=== PATIENT | male | born 1960 | race Caucasian/White ===

== ENCOUNTER → 2017-10-04 | Outpatient (CLI) | payer BC ==
[2017-10-04 10:05] LABS: Basophils # (auto) 0.1 uL; Basophils % (auto) 1.5 % (0.0-2.0); Eosinophils # (auto) 0.3 uL; Eosinophils % (auto) 4.7 % (0.0-7.0); Hematocrit 44.9 % (41.0-53.0); Hemoglobin 15.6 g/dL (13.5-17.5); Lymphocytes # (auto) 1.8 uL; Lymphocytes % (auto) 29.1 % (10.0-50.0); Mean Corpuscular Hemoglobin 31.8 pg (28.0-32.0); Mean Corpuscular Hgb Conc. 34.7 g/dL (32.0-36.0); Mean Corpuscular Volume 91.4 fL (80.0-100.0); Monocytes # (auto) 0.5 uL; Monocytes % (auto) 8.5 % (0.0-12.0); Neutrophils # (auto) 3.4 uL; Neutrophils % (auto) 56.2 % (37.0-80.0); Nucleated Red Blood Cells % 0.5 %; Platelet Count (auto) 280 10^3/uL (140-450); Red Blood Cells 4.91 10^6/uL (4.5-5.90); Red Cell Distribution Width 13.3 % (11.8-14.3)
[2017-10-04 10:40] LABS: Albumin 4.4 g/dL (3.4-5.0); BUN/Creatinine Ratio 16.7; Potassium 4.6 mmol/L (3.5-5.1); Total Protein 7.4 g/dL (6.4-8.2)
[2017-10-04 10:59] LABS: Urine Bacteria NONE SEEN /hpf (None Seen); Urine Blood Negative /uL (Negative); Urine WBC <1 /hpf (0 - 3)
== END | disposition home or self-care (01) ==
LOC: LAB 09:35
PROVIDERS: ATTEND Internal Medicine
DX: Z00.01 Encounter for general adult medical examination with abnormal findings (principal); Z12.11 Encounter for screening for malignant neoplasm of colon; R79.89 Other specified abnormal findings of blood chemistry
CPT/HCPCS: 36415; 80053; 80061; 81001; 83036; 84153; 84443; 85025

== ENCOUNTER 2019-02-09 14:41 | Inpatient (IN) | payer BC ==
[~2019-02-09] VITALS: Ht 188 cm; Wt 106.6 kg
[2019-02-09] MEDS ORDERED: ONDANSETRON HCL 4 MG/2 ML VIAL IV ONE (16:00)
[2019-02-09] MEDS ORDERED: SODIUM CHLORIDE 0.9% 1,000 ML IV ONE (16:00)
[2019-02-09] MEDS ORDERED: KETOROLAC TROMETH 30 MG/ML 1ML VIAL IV ONE (16:00)
[2019-02-09] MEDS ORDERED: MORPHINE SULF INJ 2 MG/ML SYRINGE 1ML IV ONE (16:00)
[2019-02-09] MEDS ORDERED: SODIUM CHLORIDE 0.9% 1,000 ML IVB ONE (16:37)
[2019-02-09 16:47] LABS: Hematocrit 47.3 % (41.0-53.0); Hemoglobin 16.7 g/dL (13.5-17.5); Mean Corpuscular Hemoglobin 32.9 pg (28.0-32.0); Mean Corpuscular Hgb Conc. 35.3 g/dL (32.0-36.0); Mean Corpuscular Volume 93.4 fL (80.0-100.0); Platelet Count (auto) 316 10^3/uL (140-450); Red Blood Cells 5.06 10^6/uL (4.5-5.90); Red Cell Distribution Width 13.3 % (11.8-14.3)
[2019-02-09 17:00] LABS: Albumin 4.7 g/dL (3.4-5.0); Calcium 9.2 mg/dL (8.5-10.1); Potassium 3.3 mmol/L (3.5-5.1)
[2019-02-09 17:03] LABS: BUN/Creatinine Ratio 14.9; Bilirubin, Total 1.2 mg/dL (0.2-1.0); Total Protein 8.1 g/dL (6.4-8.2)
[2019-02-09 17:17] LABS: Basophils % (manual) 0 (0.0-2.0); Blast Cells 0; Eosinophils % (manual) 0 (0-7); Metamyelocytes % 0; Myelocytes % 0; Promyelocytes % 0; Reactive Lymphocytes 0
[2019-02-09 18:39] LABS: Band Neutrophils % (manual) 1; Lymphocytes % (manual) 3 (10.0-50.0); Monocytes % (manual) 2 (0-12)
[2019-02-09] MEDS ORDERED: NITROGLYCERIN 0.4 MG SL TAB SL PRN (19:00)
[2019-02-09] MEDS ORDERED: TEMAZEPAM 15 MG CAP PO PRN (19:00)
[2019-02-09] MEDS ORDERED: PROMETHAZINE HCL 25 MG/ML 1ML IV PRN (19:00)
[2019-02-09] MEDS ORDERED: DEXTROSE (50%) 50ML SYRG IV PRN (19:00)
[2019-02-09] MEDS ORDERED: MORPHINE SULF INJ 2 MG/ML SYRINGE 1ML IV PRN (19:00)
[2019-02-09] MEDS ORDERED: traMADol HCL 50 MG TAB PO PRN (19:00)
[2019-02-09] MEDS ORDERED: MORPHINE SULFATE 4 MG/ML SYR/VIAL IV PRN (19:00)
[2019-02-09] MEDS ORDERED: TAMSULOSIN HYDROCHLORIDE 0.4 MG CAP PO ONE (19:00)
[2019-02-09] MEDS ORDERED: cefTRIAXone 1GM/50ML D5W 50 ML IV ONE (19:00)
[2019-02-09] MEDS: SOD CHL 0.9%/ KCL 40MEQ 1,000 ML IV SCH (19:00)
[2019-02-09] MEDS ORDERED: ACETAMINOPHEN 500 MG TAB PO PRN (19:00)
[2019-02-09 19:18] LABS: Urine Bacteria NONE SEEN /hpf (None Seen); Urine Blood TRACE /uL (Negative); Urine Specific Gravity 1.024 (1.001-1.035); Urine WBC 1 /hpf (0 - 3)
[2019-02-09 19:35] LABS: INR 1.05 (0.9-1.15); Partial Thromboplastin Time 25.4 sec (23.64-32.05)
[2019-02-09 20:13] VITALS: BP 107/73
--- NOTE | 2019-02-09 20:13 | NUR ---
Telemetry admit from [facility] admitted to Telemetry unit after no SBAR received. Patient oriented to NATE RODRIGUEZ RN primary RN, unit, room, bed, and unit policies regarding patient care and visiting hours. Patient now on continuous telemetry monitoring, tele box # HC-1 and telemetry reading on arrival to unit is normal sinus rhythm at 71 beats per minute. Patient weighed by bedscale and encouraged to call if they need something. All questions and concerns addressed, patient verbalized understanding. Bed in lowest locked position, side rails up x2, call light within reach. No s/s of distress. Will round every hour and as needed and continue to monitor patient. Addendum: 02/10/19 at 0219 by NATE RODRIGUEZ RN RN ADDITION: Patient reports difficulty urinating, but that urine is clear and yellow. Hat provided and patient instructed inform staff so urine could be strained, patient verbalized understanding, will continue to monitor.
[2019-02-09] MEDS: ACCU-CHEK COMFORT CURVE STRIP VI SCH (21:53)
[2019-02-09 22:00] VITALS: BP 107/73
[2019-02-10] MEDS: SOD CHL 0.9%/ KCL 40MEQ 1,000 ML IV SCH ×2 (03:20→11:54)
--- NOTE | 2019-02-10 04:10 | NUR ---
Urine Straining 500 ml of clear, light chace urine strained from patient, no stones noted. Will continue to monitor.
[2019-02-10 05:40] VITALS: BP 127/83
[2019-02-10 05:41] LABS: Basophils # (auto) 0.1 uL; Basophils % (auto) 0.5 % (0.0-2.0); Eosinophils # (auto) 0 uL; Eosinophils % (auto) 0.3 % (0.0-7.0); Hematocrit 40.4 % (41.0-53.0); Lymphocytes # (auto) 2.4 uL; Lymphocytes % (auto) 17.1 % (10.0-50.0); Mean Corpuscular Hemoglobin 33.1 pg (28.0-32.0); Mean Corpuscular Hgb Conc. 34.6 g/dL (32.0-36.0); Mean Corpuscular Volume 95.5 fL (80.0-100.0); Monocytes # (auto) 1.5 uL; Monocytes % (auto) 10.5 % (0.0-12.0); Neutrophils % (auto) 71.6 % (37.0-80.0); Platelet Count (auto) 277 10^3/uL (140-450); Red Blood Cells 4.23 10^6/uL (4.5-5.90); Red Cell Distribution Width 13.6 % (11.8-14.3)
[2019-02-10 05:59] LABS: Potassium 4.5 mmol/L (3.5-5.1)
[2019-02-10 06:09] LABS: Albumin 3.4 g/dL (3.4-5.0); BUN/Creatinine Ratio 18.9; Bilirubin, Total 0.5 mg/dL (0.2-1.0); Calcium 8.7 mg/dL (8.5-10.1); Total Protein 6.2 g/dL (6.4-8.2)
[2019-02-10] MEDS: ACCU-CHEK COMFORT CURVE STRIP VI SCH ×3 (06:38→17:00)
--- NOTE | 2019-02-10 07:00 | NUR ---
Closing Note Patient lying in bed, awake and alert. No s/s of distress. Care endorsed to dayshift RN.
[2019-02-10 07:48] VITALS: BP 147/89
--- NOTE | 2019-02-10 07:48 | NUR ---
Opening Shift Note Assumed care of patient, awake and alert. No S/S of distress/SOB or pain. Instructed on POC and to call for assist PRN, will continue to monitor for changes Q1hr and PRN.
[2019-02-10] MEDS ORDERED: cefTRIAXone 1GM/50ML D5W 50 ML IV SCH (09:00)
[2019-02-10] MEDS ORDERED: PANTOPRAZOLE 40 MG TAB PO SCH (10:00)
[2019-02-10] MEDS ORDERED: ENOXAPARIN SOD 40 MG/0.4 ML SYRINGE SC SCH (10:00)
--- NOTE | 2019-02-10 11:50 | NUR ---
Patient ambulating on unit. in attendance
[2019-02-10 11:54] VITALS: BP 128/84
--- NOTE | 2019-02-10 15:30 | NUR ---
Urology consult Patient concerned that urologist have not been in to see him yet. He wants to go home but want to know if he still has a blockage. Consult was called in 02/09/19 at 1950.
[2019-02-10 16:20] VITALS: BP 131/81
--- NOTE | 2019-02-10 16:30 | NUR ---
Dr. Winkler at bedside.
[2019-02-10 17:31] VITALS: BP 131/81
--- NOTE | 2019-02-10 18:07 | NUR ---
Discharge instructions given as ordered. Encourage to follow up with PMD as instructed. All questions and concerns addressed. Patient verbalized understanding. Medication reconciliation form completed and copy given to patient. IV removed with catheter intact and pressure dressing applied. Telemetry unit returned to [facility]. Patient ambulated to vehicle with all personal belongings. No distress noted at time of departure.
== END 2019-02-10 18:00 | disposition home or self-care (01) | DRG 694 ==
LOC: ER 14:41 → TELE 18:56 → TELE-WESTW 20:13
PROVIDERS: ADMIT Internal Medicine; ATTEND Internal Medicine
DX: N13.2 Hydronephrosis with renal and ureteral calculous obstruction (principal); E87.6 Hypokalemia; E78.5 Hyperlipidemia, unspecified; E11.9 Type 2 diabetes mellitus without complications; N17.9 Acute kidney failure, unspecified; Z82.49 Family history of ischemic heart disease and other diseases of the circulatory system; Z87.442 Personal history of urinary calculi; E66.3 Overweight; Z68.30 Body mass index [BMI] 30.0-30.9, adult; M54.9 Dorsalgia, unspecified; G89.29 Other chronic pain
CPT/HCPCS: 36415; 71045; 74176; 80053; 81001; 82962; 83036; 83735; 85007; 85025; 85027; 85610; 85730; 87086; 93005; 94761; 96365; 96368; 96375; 96376; G0378; J0696; J1885; J2405

== ENCOUNTER 2019-02-24 11:53 | Inpatient (IN) | payer BC ==
[~2019-02-24] VITALS: Ht 190.5 cm; Wt 105.4 kg
[2019-02-24 13:13] LABS: Urine Bacteria NONE SEEN /hpf (None Seen); Urine Blood Negative /uL (Negative); Urine Specific Gravity 1.021 (1.001-1.035); Urine WBC 2 /hpf (0 - 3)
[2019-02-24 13:46] LABS: Basophils # (auto) 0 uL; Basophils % (auto) 0.3 % (0.0-2.0); Eosinophils # (auto) 0 uL; Hematocrit 45.7 % (41.0-53.0); Hemoglobin 15.7 g/dL (13.5-17.5); Lymphocytes # (auto) 1.1 uL; Lymphocytes % (auto) 7.7 % (10.0-50.0); Mean Corpuscular Hemoglobin 31.7 pg (28.0-32.0); Mean Corpuscular Hgb Conc. 34.4 g/dL (32.0-36.0); Monocytes % (auto) 7.1 % (0.0-12.0); Neutrophils # (auto) 12.3 uL; Neutrophils % (auto) 84.9 % (37.0-80.0); Platelet Count (auto) 311 10^3/uL (140-450); Red Blood Cells 4.97 10^6/uL (4.5-5.90); Red Cell Distribution Width 13.2 % (11.8-14.3); White Blood Cell 14.5 10^3/uL (4.4-10.8)
[2019-02-24 14:00] LABS: Albumin 4.4 g/dL (3.4-5.0); BUN/Creatinine Ratio 17.3; Calcium 8.7 mg/dL (8.5-10.1); Potassium 4.6 mmol/L (3.5-5.1)
[2019-02-24 14:03] LABS: Bilirubin, Total 0.8 mg/dL (0.2-1.0); Total Protein 7.4 g/dL (6.4-8.2)
[2019-02-24] MEDS ORDERED: SODIUM CHLORIDE 0.9% 1,000 ML IVB ONE (15:03)
[2019-02-24] MEDS ORDERED: KETOROLAC TROMETH 15 mg/ml 1ML VL IV ONE (15:15)
--- NOTE | 2019-02-24 15:59 | NUR ---
MS admit from ER ISREAL SORIAY admitted to [facility]/MS after SBAR received. Patient oriented to Anastasia Vides, primary RN, unit, room, bed, and unit policies regarding patient care and visiting hours. Patient weighed by bedscale and encouraged to call if they need something. All questions and concerns addressed, patient verbalized understanding. Note: PT IS AWAKE AND ALERT, NO COMPLAINTS OF PAIN AT THIS TIME, WILL CONTINUE TO MONITOR. Addendum: 02/24/19 at 1936 by Anastasia Vides RN RECEIVED PT AT [id number]
[2019-02-24 16:00] VITALS: BP 126/79
[2019-02-24] MEDS ORDERED: traMADol HCL 50 MG TAB PO PRN (16:00)
[2019-02-24] MEDS ORDERED: MORPHINE SULFATE 4 MG/ML SYR/VIAL IV PRN (16:00)
[2019-02-24] MEDS ORDERED: NITROGLYCERIN 0.4 MG SL TAB SL PRN (16:00)
[2019-02-24] MEDS ORDERED: MORPHINE SULF INJ 2 MG/ML SYRINGE 1ML IV PRN (16:00)
[2019-02-24] MEDS ORDERED: PROMETHAZINE HCL 25 MG/ML 1ML IV PRN (16:00)
[2019-02-24] MEDS ORDERED: TEMAZEPAM 15 MG CAP PO PRN (16:00)
[2019-02-24] MEDS ORDERED: ACETAMINOPHEN 500 MG TAB PO PRN (16:00)
[2019-02-24] MEDS ORDERED: cefTRIAXone 1GM/50ML D5W 50 ML IV ONE (16:00)
[2019-02-24] MEDS: SODIUM CHLORIDE 0.9% 1,000 ML IV SCH (16:08)
[2019-02-24] MEDS ORDERED: MANNITOL FTV 25% 12.5 GM/50 ML 50 ML IV ONE (16:30)
--- NOTE | 2019-02-24 16:35 | NUR ---
RECEIVED REPORT FROM INDIA PADGETT
[2019-02-24] MEDS ORDERED: TAMSULOSIN HYDROCHLORIDE 0.4 MG CAP PO ONE (17:45)
--- NOTE | 2019-02-24 19:10 | NUR ---
RECEIVED PATIENT LYING IN BED, AWAKE, ALERT, ORIENTED X4. NO S/S OF RESPIRATORY DISTRESS, DENIES SOB AND CHEST PAIN. ORIENTED ON PLAN OF CARE. BED IS LOCKED AND IN LOWEST LEVEL, SIDE RAILS UP X2, CALL LIGHT WITHIN REACH. WILL CONTINUE TO MONITOR.
[2019-02-24 22:00] VITALS: BP 124/75
[2019-02-25] MEDS: SODIUM CHLORIDE 0.9% 1,000 ML IV SCH ×3 (02:00→22:19)
[2019-02-25 05:00] VITALS: BP 107/69
--- NOTE | 2019-02-25 07:12 | NUR ---
CARE ENDORSED TO AM SHIFT RN
--- NOTE | 2019-02-25 07:30 | NUR ---
Opening Shift Note Assumed care of patient, awake and alert, lying on bed. No S/S of distress/SOB or flank pain. Instructed on POC and to call for assist PRN, will continue to monitor for changes Q1hr and PRN.
[2019-02-25 08:42] VITALS: BP 126/83
[2019-02-25] MEDS ORDERED: cefTRIAXone 1GM/50ML D5W 50 ML IV SCH (09:00)
[2019-02-25] MEDS: PANTOPRAZOLE 40 MG TAB PO SCH (09:12)
[2019-02-25 10:25] LABS: Basophils # (auto) 0 uL; Basophils % (auto) 0.3 % (0.0-2.0); Eosinophils # (auto) 0.1 uL; Eosinophils % (auto) 0.6 % (0.0-7.0); Hematocrit 39.1 % (41.0-53.0); Hemoglobin 13.7 g/dL (13.5-17.5); Lymphocytes # (auto) 1.4 uL; Lymphocytes % (auto) 15.5 % (10.0-50.0); Mean Corpuscular Hemoglobin 32.4 pg (28.0-32.0); Mean Corpuscular Volume 92.6 fL (80.0-100.0); Monocytes # (auto) 0.6 uL; Monocytes % (auto) 6.5 % (0.0-12.0); Neutrophils # (auto) 7.1 uL; Neutrophils % (auto) 77.1 % (37.0-80.0); Platelet Count (auto) 247 10^3/uL (140-450); Red Blood Cells 4.22 10^6/uL (4.5-5.90); Red Cell Distribution Width 13.4 % (11.8-14.3); White Blood Cell 9.2 10^3/uL (4.4-10.8)
[2019-02-25 10:37] LABS: Albumin 3.4 g/dL (3.4-5.0); Calcium 8.3 mg/dL (8.5-10.1)
[2019-02-25 10:42] LABS: BUN/Creatinine Ratio 16.1; Bilirubin, Total 0.6 mg/dL (0.2-1.0); Total Protein 6.1 g/dL (6.4-8.2)
[2019-02-25 12:30] VITALS: BP 135/95
[2019-02-25 17:27] VITALS: BP 141/90
--- NOTE | 2019-02-25 18:30 | NUR ---
Pt is resting on bed comfortably, no complaints of flank pain throughout the day.
--- NOTE | 2019-02-25 20:00 | NUR ---
UNABLE TO OBTAIN CONSENT, PATIENT AND HIS WANT TO SPEAK TO DR. PINZON FIRST. WILL SIGN THE CONSENT TOMORROW. INSTRUCTED TO BE NPO AFTER MIDNIGHT. PATIENT VERBALIZED UNDERSTANDING
[2019-02-25 22:00] VITALS: BP 137/78
--- NOTE | 2019-02-25 22:30 | NUR ---
RECEIVED A CALL FROM THE LAB, PATIENT POSITIVE FOR MRSA FROM THE [facility]
--- NOTE | 2019-02-25 23:00 | NUR ---
TRANSFERRED TO ROOM 207, ON CONTACT PRECAUTION
--- NOTE | 2019-02-26 00:30 | NUR ---
SPOKED WITH HOSPITALIST Gucci NUNEZ REGARDING PATIENT POSITIVE FOR MRSA AND PATIENT HAS PASSED RENAL STONE IN HIS URINE RECEIVED ORDER FOR BACTROBAN OINTMENT BID AND SEND STONE SAMPLE TO THE LAB
--- NOTE | 2019-02-26 00:35 | NUR ---
STONE SAMPLE SENT TO THE LAB, NO NEED TO PUT AN ORDER PER THE LAB STAFF
[2019-02-26 05:01] VITALS: BP 131/89
[2019-02-26 05:22] LABS: INR 0.96 (0.9-1.15); Partial Thromboplastin Time 25.1 sec (23.64-32.05)
[2019-02-26 05:24] LABS: BUN/Creatinine Ratio 15.2; Calcium 8.6 mg/dL (8.5-10.1); Potassium 4.6 mmol/L (3.5-5.1)
--- NOTE | 2019-02-26 07:08 | NUR ---
CARE ENDORSED TO AM SHIFT RN
[2019-02-26] MEDS: SODIUM CHLORIDE 0.9% 1,000 ML IV SCH (07:55)
--- NOTE | 2019-02-26 08:30 | NUR ---
PT SEEN BY NANI UNDERWOOD PT MADE AWARE ESWL PROCEDURE WILL BE RESCHEDULED TOMORROW DUE TO MACHINE NOT AVAILABLE TODAY, PT STATED HE WANT TO GO HOME SINCE HIS NOT HAVING PAIN AND CANNOT WAIT UNTIL TOMORROW. ELDER IS AWARE PT PASSED OUT STONE LAST NIGHT. PER ELDER PT CAN FOLLOW UP WITH UROLOGY AN OUT PATIENT.
--- NOTE | 2019-02-26 08:45 | NUR ---
PT SEEN BY DR. HAYNES SHE ORDERED STAT KUB.
[2019-02-26 08:48] VITALS: BP 144/85
--- NOTE | 2019-02-26 09:00 | NUR ---
SPOKE WITH DR. HAYNES PER DR. HAYNES KUB RESULTED AND NO STONE WAS FOUND, PT CAN GO HOME.
[2019-02-26] MEDS ORDERED: MUPI2OIN2 EACHNOSTRI (09:23)
[2019-02-26] MEDS: PANTOPRAZOLE 40 MG TAB PO SCH (10:00)
[2019-02-26] MEDS ORDERED: MUPIROCIN 2% OINT 15gm or 22gm EACHNOSTRI SCH ×2 (10:00)
[2019-02-26 10:24] VITALS: BP 144/85
--- NOTE | 2019-02-26 11:20 | NUR ---
Discharge instructions given as ordered. Encourage to follow up with DR. PRIEST ON MARCH 05 AT 3:30 PM as instructed. All questions and concerns addressed. Patient verbalized understanding. Medication reconciliation form completed and copy given to patient. IV removed with catheter intact, pressure dressing applied. Patient PREFERRED TO WALK TO THE VEHICLE with all personal belongings, accompanied by . No distress noted at time of departure.
== END 2019-02-26 11:20 | disposition home or self-care (01) | DRG 694 ==
LOC: ER 11:53 → OVERFLOW 16:00 → CENTRAL 16:45
PROVIDERS: ADMIT Internal Medicine; ATTEND Internal Medicine
DX: N13.2 Hydronephrosis with renal and ureteral calculous obstruction (principal); E11.9 Type 2 diabetes mellitus without complications; N17.9 Acute kidney failure, unspecified; E78.5 Hyperlipidemia, unspecified; F17.200 Nicotine dependence, unspecified, uncomplicated; Z82.49 Family history of ischemic heart disease and other diseases of the circulatory system; Z87.442 Personal history of urinary calculi; Z22.322 Carrier or suspected carrier of Methicillin resistant Staphylococcus aureus
CPT/HCPCS: 36415; 71045; 74018; 74176; 80048; 80053; 81001; 84484; 85025; 85610; 85730; 86850; 86900; 86901; 87081; 87086; 93005; 94761; 96361; 96374; 96375; G0378; J0696

== ENCOUNTER 2019-03-04 08:19 | Emergency (ER) | payer BC ==
[~2019-03-04] VITALS: Ht 190.5 cm; Wt 104.3 kg
[~2019-03-04 08:19] MED LIST: MUPI2OIN2 EACHNOSTRI
[2019-03-04 08:42] VITALS: BP 134/74
== END 2019-03-04 09:05 | disposition home or self-care (01) ==
LOC: ER 08:26
DX: B95.62 Methicillin resistant Staphylococcus aureus infection as the cause of diseases classified elsewhere (principal); Z90.89 Acquired absence of other organs
CPT/HCPCS: 87040; 87081

== ENCOUNTER → 2019-03-13 | Outpatient (CLI) | payer BC ==
[2019-03-13 10:41] LABS: Cholesterol 152 mg/dL (< 200); Triglycerides 50 mg/dL (< 150)
[2019-03-13 10:43] LABS: HDL Cholesterol 59 mg/dL (40-59); LDL Cholesterol 96 mg/dL (< 100)
== END | disposition home or self-care (01) ==
LOC: LAB 10:00
PROVIDERS: ATTEND Internal Medicine
DX: Z12.11 Encounter for screening for malignant neoplasm of colon (principal); E11.9 Type 2 diabetes mellitus without complications
CPT/HCPCS: 36415; 80061; 82043; 84153

== ENCOUNTER 2019-08-08 09:25 | Inpatient (IN) | payer BC ==
[~2019-08-08] VITALS: Ht 190.5 cm; Wt 112.4 kg
[2019-08-08] MEDS ORDERED: SODIUM CHLORIDE 0.9% 1,000 ML IV ONE ×3 (10:15→10:28)
[2019-08-08] MEDS ORDERED: PROMETHAZINE HCL 25 MG/ML 1ML IV ONE (10:15)
[2019-08-08] MEDS ORDERED: KETOROLAC TROMETH 30 MG/ML 1ML VIAL IV ONE (10:15)
[2019-08-08 10:37] LABS: Basophils # (auto) 0 uL; Basophils % (auto) 0.2 % (0.0-2.0); Eosinophils # (auto) 0 uL; Hematocrit 43.9 % (41.0-53.0); Hemoglobin 15.4 g/dL (13.5-17.5); Lymphocytes # (auto) 0.7 uL; Lymphocytes % (auto) 5.3 % (10.0-50.0); Mean Corpuscular Volume 91.7 fL (80.0-100.0); Monocytes # (auto) 0.3 uL; Monocytes % (auto) 2.5 % (0.0-12.0); Platelet Count (auto) 284 10^3/uL (140-450); Red Blood Cells 4.79 10^6/uL (4.5-5.90); Red Cell Distribution Width 13.1 % (11.8-14.3)
[2019-08-08 10:52] LABS: Albumin 4.5 g/dL (3.4-5.0); Anion Gap 10 (5-15); Blood Urea Nitrogen 27 mg/dL (7-18); Calcium 8.8 mg/dL (8.5-10.1); Carbon Dioxide 21 mmol/L (21-32); Chloride 107 mmol/L (98-107); Glucose 201 mg/dL (74-106); Potassium 3.4 mmol/L (3.5-5.1); Sodium 138 mmol/L (136-145)
[2019-08-08 10:56] LABS: Urine Bacteria NONE SEEN /hpf (None Seen); Urine Blood Negative /uL (Negative); Urine Mucus FEW (None Seen); Urine Specific Gravity 1.025 (1.001-1.035); Urine WBC 3 /hpf (0 - 3)
[2019-08-08 10:58] LABS: Alanine Aminotransferase 27 U/L (16-61); Alkaline Phosphatase 95 U/L (45-117); Aspartate Aminotransferase 23 U/L (15-37); BUN/Creatinine Ratio 18.4; Bilirubin, Total 0.8 mg/dL (0.2-1.0); GFR African American 64 mL/min; GFR Non-African American 52 mL/min; Total Protein 7.5 g/dL (6.4-8.2)
[2019-08-08] MEDS ORDERED: TAMSULOSIN HYDROCHLORIDE 0.4 MG CAP PO ONE (11:45)
[2019-08-08] MEDS ORDERED: cefTRIAXone 1GM/50ML D5W 50 ML IV ONE ×2 (11:45→14:15)
[2019-08-08] MEDS ORDERED: ONDANSETRON HCL 4 MG/2 ML VIAL IV ONE (12:30)
[2019-08-08] MEDS ORDERED: MORPHINE SULFATE 4 MG/ML SYR/VIAL IV ONE (13:45)
[2019-08-08] MEDS: SODIUM CHLORIDE 0.9% 1,000 ML IV SCH ×2 (14:02→22:00)
[2019-08-08] MEDS ORDERED: ACETAMINOPHEN 500 MG TAB PO PRN (14:15)
--- NOTE | 2019-08-08 15:00 | NUR ---
PATIENT ARRIVED TO THE UNIT IN EXCRUCIATING PAIN, VIA HOSPITAL BED. PATIENT WAS ORIENTED TO THE UNIT, THE USE OF CALL LIGHT AND POC. VITAL SIGNS WHERE TAKEN, B/P WAS ELEVATED, HOWEVER THE PATIENT WAS MOVING IN BED AND TRASHING AROUND. WILL RETAKE. PATIENT IS ON ROOM AIR, OVERALL HEALTHY LOOKING, OTHER THAN THE PAIN HE DENIES ANY DISTRESS. CALL LIGHT WITH IN REACH, BED IN THE LOWEST POSITION. WILL CONTINUE TO MONITOR
[2019-08-08] MEDS: KETOROLAC TROMETH 30 MG/ML 1ML VIAL IV PRN ×2 (16:12→23:04)
[2019-08-08] MEDS: PROMETHAZINE HCL 25 MG/ML 1ML IV PRN (16:12)
[2019-08-08 17:00] VITALS: BP 168/97
[2019-08-08] MEDS ORDERED: MANNITOL FTV 25% 12.5 GM/50 ML 50 ML IV ONE (17:15)
--- NOTE | 2019-08-08 19:00 | NUR ---
PATIENT ALERT AND ORIENTED, NO S/S OF DISTRESS
--- NOTE | 2019-08-08 19:39 | NUR ---
CARE ENDORSED TO RN
[2019-08-08] MEDS: traMADol HCL 50 MG TAB PO PRN (20:28)
--- NOTE | 2019-08-08 21:00 | NUR ---
Provided patient with urinal to strain urine for stones. Patient verbalized understanding.
[2019-08-08] MEDS: FAMOTIDINE 20 MG TAB PO SCH (21:39)
[2019-08-08] MEDS: TEMAZEPAM 15 MG CAP PO PRN (21:39)
[2019-08-08 22:00] VITALS: BP 161/90
[2019-08-09 05:00] VITALS: BP 147/85
[2019-08-09] MEDS: KETOROLAC TROMETH 30 MG/ML 1ML VIAL IV PRN ×3 (05:23→18:23)
[2019-08-09 06:14] LABS: Basophils # (auto) 0 uL; Basophils % (auto) 0.3 % (0.0-2.0); Eosinophils # (auto) 0 uL; Hematocrit 40.4 % (41.0-53.0); Hemoglobin 14.2 g/dL (13.5-17.5); Lymphocytes % (auto) 5.2 % (10.0-50.0); Mean Corpuscular Hemoglobin 32.3 pg (28.0-32.0); Mean Corpuscular Hgb Conc. 35.2 g/dL (32.0-36.0); Mean Corpuscular Volume 91.9 fL (80.0-100.0); Monocytes # (auto) 1.3 uL; Monocytes % (auto) 6.8 % (0.0-12.0); Neutrophils # (auto) 16.1 uL; Neutrophils % (auto) 87.7 % (37.0-80.0); Nucleated Red Blood Cells % 0.1 %; Platelet Count (auto) 224 10^3/uL (140-450); Red Blood Cells 4.39 10^6/uL (4.5-5.90); Red Cell Distribution Width 13.2 % (11.8-14.3); White Blood Cell 18.4 10^3/uL (4.4-10.8)
--- NOTE | 2019-08-09 07:15 | NUR ---
Opening Shift Note Report received and rounding completed. Patient noted awake, alert & oriented, sitting up in bed reporting no pain currently. POC reviewed and patient verbalized understanding. Will continue to monitor urine for stones and attempt to control pain. Patient has call light within reach and understands to call if needing assistance.
[2019-08-09] MEDS: cefTRIAXone 1GM/50ML D5W 50 ML IV SCH (08:53)
[2019-08-09 09:00] VITALS: BP 129/63
[2019-08-09] MEDS: FAMOTIDINE 20 MG TAB PO SCH ×2 (09:51→21:31)
[2019-08-09] MEDS: traMADol HCL 50 MG TAB PO PRN ×2 (09:51→14:18)
[2019-08-09] MEDS: SODIUM CHLORIDE 0.9% 1,000 ML IV SCH ×2 (09:52→21:31)
--- NOTE | 2019-08-09 11:42 | NUR ---
IV Infiltrated R Hand IV infiltrated, removed with tip intact. 2X attempts to obtain new IV, charge nurse notified to attempt IV access.
--- NOTE | 2019-08-09 12:01 | NUR ---
NEW IV L wrist 22G placed by disk recordist Joslyn.
[2019-08-09 13:00] VITALS: BP 144/85
[2019-08-09 17:00] VITALS: BP 139/82
--- NOTE | 2019-08-09 19:30 | NUR ---
Opening shift note Patient in bed alert and oriented x 4, verbally coherent able to make needs known. Patient's respiration even and unlabored, denies pain and discomfort at this time. Plan of care discussed, patient verbalized understanding. All needs attended, will continue to monitor.
[2019-08-09] MEDS: TEMAZEPAM 15 MG CAP PO PRN (21:32)
[2019-08-09 22:00] VITALS: BP 109/72
[2019-08-10] MEDS: KETOROLAC TROMETH 30 MG/ML 1ML VIAL IV PRN ×4 (02:05→23:13)
[2019-08-10 05:47] LABS: Basophils # (auto) 0 uL; Basophils % (auto) 0.2 % (0.0-2.0); Eosinophils # (auto) 0 uL; Eosinophils % (auto) 0.3 % (0.0-7.0); Hematocrit 39.1 % (41.0-53.0); Hemoglobin 13.6 g/dL (13.5-17.5); Lymphocytes # (auto) 1.3 uL; Lymphocytes % (auto) 10.6 % (10.0-50.0); Mean Corpuscular Hemoglobin 32.5 pg (28.0-32.0); Mean Corpuscular Hgb Conc. 34.9 g/dL (32.0-36.0); Monocytes % (auto) 8.2 % (0.0-12.0); Neutrophils # (auto) 9.7 uL; Neutrophils % (auto) 80.7 % (37.0-80.0); Platelet Count (auto) 217 10^3/uL (140-450); Red Cell Distribution Width 13.1 % (11.8-14.3); White Blood Cell 12.1 10^3/uL (4.4-10.8)
[2019-08-10 05:55] LABS: Potassium 4.6 mmol/L (3.5-5.1)
[2019-08-10] MEDS: SODIUM CHLORIDE 0.9% 1,000 ML IV SCH ×2 (06:02→16:43)
[2019-08-10 06:03] LABS: Albumin 3.6 g/dL (3.4-5.0); BUN/Creatinine Ratio 15.7; Bilirubin, Total 0.9 mg/dL (0.2-1.0); Calcium 8.4 mg/dL (8.5-10.1); Magnesium 2.4 mg/dL (1.6-2.6); Total Protein 5.9 g/dL (6.4-8.2)
[2019-08-10 06:05] VITALS: BP 124/76
[2019-08-10] MEDS: traMADol HCL 50 MG TAB PO PRN ×2 (06:38→14:33)
--- NOTE | 2019-08-10 08:26 | NUR ---
OPENING SHIFT NOTE ASSUMED CARE OF PT. PT IS AWAKE AND ALERT. NO SOB OR SIGNS OF DISTRESS NOTED. INSTRUCTED ON POC AND TO CALL FOR HELP PRN. BED IN LOWEST POSITION WITH SIDE RAILS UP X2. WILL CONTINUE TO MONITOR.
[2019-08-10 09:00] VITALS: BP 119/72
[2019-08-10] MEDS: PROMETHAZINE HCL 25 MG/ML 1ML IV PRN ×2 (10:45→17:13)
[2019-08-10] MEDS: FAMOTIDINE 20 MG TAB PO SCH ×2 (10:54→21:12)
[2019-08-10] MEDS: cefTRIAXone 1GM/50ML D5W 50 ML IV SCH (10:54)
[2019-08-10 13:00] VITALS: BP 110/68
[2019-08-10 16:42] VITALS: BP 107/67
--- NOTE | 2019-08-10 19:30 | NUR ---
Opening shift note Patient in bed alert and oriented, verbally coherent able to make needs known. Patient denies pain and discomfort at this time. Plan of care discussed, patient verbalized understanding. family at bedside. All needs attended, will continue to monitor.
[2019-08-10] MEDS: TEMAZEPAM 15 MG CAP PO PRN (21:12)
[2019-08-10 22:00] VITALS: BP 100/61
[2019-08-11] MEDS: SODIUM CHLORIDE 0.9% 1,000 ML IV SCH ×3 (00:13→23:17)
[2019-08-11 05:00] VITALS: BP 114/73
[2019-08-11 07:04] LABS: Basophils # (auto) 0 uL; Basophils % (auto) 0.5 % (0.0-2.0); Eosinophils # (auto) 0.1 uL; Eosinophils % (auto) 0.8 % (0.0-7.0); Hematocrit 39.2 % (41.0-53.0); Hemoglobin 13.7 g/dL (13.5-17.5); Lymphocytes # (auto) 1.1 uL; Lymphocytes % (auto) 10.8 % (10.0-50.0); Mean Corpuscular Hemoglobin 32.9 pg (28.0-32.0); Mean Corpuscular Hgb Conc. 34.9 g/dL (32.0-36.0); Mean Corpuscular Volume 94.1 fL (80.0-100.0); Monocytes % (auto) 9.7 % (0.0-12.0); Neutrophils # (auto) 7.9 uL; Neutrophils % (auto) 78.2 % (37.0-80.0); Nucleated Red Blood Cells % 0.1 %; Platelet Count (auto) 178 10^3/uL (140-450); Red Blood Cells 4.17 10^6/uL (4.5-5.90); Red Cell Distribution Width 13.3 % (11.8-14.3); White Blood Cell 10.1 10^3/uL (4.4-10.8)
[2019-08-11 07:33] LABS: Calcium 7.7 mg/dL (8.5-10.1); Potassium 4.1 mmol/L (3.5-5.1)
[2019-08-11 07:35] LABS: BUN/Creatinine Ratio 13.3
--- NOTE | 2019-08-11 08:34 | NUR ---
OPENING SHIFT NOTE RESUMED CARE OF PT. PT IS AWAKE AND ALERT AND AMBULATING IN [place]. NO SOB OR SIGNS OF DISTRESS NOTED. NO PAIN REPORTED AT THIS TIME. INSTRUCTED ON POC AND TO CALL FOR HELP PRN. WILL CONTINUE TO MONITOR.
[2019-08-11 09:00] VITALS: BP 136/88
--- NOTE | 2019-08-11 09:00 | NUR ---
RIGHT HAND IV REMOVED DUE TO PT COMPLAINT OF INCREASED SWELLING TO HAND. INTACT IV REMOVED. PT TOLERATED WELL.
[2019-08-11] MEDS: traMADol HCL 50 MG TAB PO PRN ×2 (09:11→18:00)
[2019-08-11] MEDS: cefTRIAXone 1GM/50ML D5W 50 ML IV SCH (09:11)
[2019-08-11] MEDS: FAMOTIDINE 20 MG TAB PO SCH ×2 (09:12→22:07)
--- NOTE | 2019-08-11 11:00 | NUR ---
NEW IV STARTED. 22G IV PLACED IN LEFT FOREARM. PT TOLERATED WELL. WILL CONTINUE IV FLUIDS ORDERED.
[2019-08-11 13:00] VITALS: BP 112/72
[2019-08-11 17:00] VITALS: BP 154/96
[2019-08-11 22:00] VITALS: BP 124/68
[2019-08-11] MEDS: TEMAZEPAM 15 MG CAP PO PRN (22:07)
[2019-08-11] MEDS: KETOROLAC TROMETH 30 MG/ML 1ML VIAL IV PRN (23:17)
[2019-08-12 05:00] VITALS: BP_SYST 113; BP_SYST 145; BP_DIAS 61; BP_DIAS 75
[2019-08-12 05:29] LABS: Basophils # (auto) 0.1 uL; Basophils % (auto) 0.7 % (0.0-2.0); Eosinophils # (auto) 0.1 uL; Eosinophils % (auto) 1.1 % (0.0-7.0); Hematocrit 37.2 % (41.0-53.0); Hemoglobin 13.2 g/dL (13.5-17.5); Lymphocytes # (auto) 1.6 uL; Lymphocytes % (auto) 18.6 % (10.0-50.0); Mean Corpuscular Hemoglobin 32.6 pg (28.0-32.0); Mean Corpuscular Hgb Conc. 35.5 g/dL (32.0-36.0); Monocytes # (auto) 0.9 uL; Monocytes % (auto) 10.3 % (0.0-12.0); Neutrophils # (auto) 5.8 uL; Neutrophils % (auto) 69.3 % (37.0-80.0); Platelet Count (auto) 181 10^3/uL (140-450); Red Blood Cells 4.05 10^6/uL (4.5-5.90); Red Cell Distribution Width 12.9 % (11.8-14.3); White Blood Cell 8.4 10^3/uL (4.4-10.8)
[2019-08-12 05:51] LABS: Potassium 4.4 mmol/L (3.5-5.1)
[2019-08-12 05:55] LABS: BUN/Creatinine Ratio 13.7; Calcium 8.1 mg/dL (8.5-10.1)
[2019-08-12] MEDS: SODIUM CHLORIDE 0.9% 1,000 ML IV SCH (08:59)
[2019-08-12] MEDS: cefTRIAXone 1GM/50ML D5W 50 ML IV SCH (08:59)
[2019-08-12] MEDS: FAMOTIDINE 20 MG TAB PO SCH (08:59)
[2019-08-12 10:28] VITALS: BP 112/68
--- NOTE | 2019-08-12 11:20 | NUR ---
DR. RODRIGUEZ IN TO SEE PT. PER MD TO CALL DISCHARGE MEDICATION: FLOMAX 0.4mg PO DAILY AT 1400 WITH 30 DAYS SUPPLY. MEDICATION CALLED TO [facility].
[2019-08-12 13:00] VITALS: BP 130/87
[2019-08-12] MEDS: traMADol HCL 50 MG TAB PO PRN (13:31)
[2019-08-12 14:33] VITALS: BP 130/87
--- NOTE | 2019-08-12 15:28 | NUR ---
DISCHARGE INSTRUCTIONS PROVIDED TO PT AND . BOTH VERBALIZED UNDERSTANDING FOR FOLLOW UP APPOINTMENT WITH PCP AND UROLOGIST, PRESCRIPTIONS ORDER. EDUCATIONAL MATERIAL PROVIDED, ALL QUESTIONS AND CONCERNS ADDRESSED. IV CATHETER DC'D, CATHETER INTACT, NO PHLEBITIS, HEMATOMA. PT SAFELY ESCORTED OUT OF UNIT.
== END 2019-08-12 15:30 | disposition home or self-care (01) | DRG 694 ==
LOC: ER 09:27 → OVERFLOW 09:28 → WEST WING 15:02
PROVIDERS: ADMIT Internal Medicine; ATTEND Internal Medicine
DX: N13.2 Hydronephrosis with renal and ureteral calculous obstruction (principal); R65.10 Systemic inflammatory response syndrome (SIRS) of non-infectious origin without acute organ dysfunction; N17.0 Acute kidney failure with tubular necrosis; G89.29 Other chronic pain; E11.22 Type 2 diabetes mellitus with diabetic chronic kidney disease; N28.1 Cyst of kidney, acquired; E78.5 Hyperlipidemia, unspecified; E66.9 Obesity, unspecified; I12.9 Hypertensive chronic kidney disease with stage 1 through stage 4 chronic kidney disease, or unspecified chronic kidney disease; N18.3 Chronic kidney disease, stage 3 (moderate); Z82.49 Family history of ischemic heart disease and other diseases of the circulatory system; Z87.442 Personal history of urinary calculi; Z68.31 Body mass index [BMI] 31.0-31.9, adult
CPT/HCPCS: 36415; 74176; 76775; 80048; 80053; 81001; 83036; 83735; 84484; 85025; 87086; 96361; 96365; 96375; G0378; J0696; J1885; J2405

== ENCOUNTER → 2019-08-26 | Outpatient (CLI) | payer BC ==
[2019-08-26 09:00] LABS: Basophils # (auto) 0.1 uL; Basophils % (auto) 1.1 % (0.0-2.0); Eosinophils # (auto) 0.1 uL; Eosinophils % (auto) 1.8 % (0.0-7.0); Hematocrit 42.7 % (41.0-53.0); Hemoglobin 14.8 g/dL (13.5-17.5); Lymphocytes # (auto) 1.8 uL; Lymphocytes % (auto) 23.2 % (10.0-50.0); Mean Corpuscular Hemoglobin 31.7 pg (28.0-32.0); Mean Corpuscular Hgb Conc. 34.6 g/dL (32.0-36.0); Mean Corpuscular Volume 91.6 fL (80.0-100.0); Monocytes # (auto) 0.9 uL; Monocytes % (auto) 12.1 % (0.0-12.0); Neutrophils # (auto) 4.7 uL; Neutrophils % (auto) 61.8 % (37.0-80.0); Nucleated Red Blood Cells % 0.1 %; Platelet Count (auto) 324 10^3/uL (140-450); Red Blood Cells 4.66 10^6/uL (4.5-5.90); Red Cell Distribution Width 13.1 % (11.8-14.3); White Blood Cell 7.6 10^3/uL (4.4-10.8)
== END | disposition home or self-care (01) ==
LOC: LAB 08:37
PROVIDERS: ATTEND Internal Medicine
DX: I82.90 Acute embolism and thrombosis of unspecified vein (principal)
CPT/HCPCS: 36415; 85025